=== PATIENT | female | born 1985 | race Caucasian/White ===

== ENCOUNTER → 2023-05-26 09:22 | Outpatient (REF) | payer OTHER, SELFPAY | LOC: HWRAD 09:22 | PROVIDERS: ATTENDING PHYSICIAN Obstetrics & Gynecology; FAMILY PHYSICIAN Internal Medicine | DX: N83.201 Unspecified ovarian cyst, right side (principal) | CPT/HCPCS: 76830; 76856 ==

== ENCOUNTER 2023-12-24 16:09 | Emergency (ER) | payer OTHER, SELFPAY ==
[2023-12-24 16:12] VITALS: BP 119/91
--- NOTE | 2023-12-24 16:21 | ED.GENMED ---
ED Provider Triage
<NATALYA Reece - Last Filed: 12/24/23 16:23>
-
Patient seen by provider in Triage?: Seen in Triage
Attestation: A medical screening examination has been initiated by a qualified medical provider. Based on the assessment performed at this time, it has been determined that an emergent medical condition may exist and the patient has been informed
that further medical evaluation and possible additional diagnostic testing may be needed.
HPI: 38 yr old female presents to the ER complaining of left-sided chest pain/bilateral jaw pain and pain between shoulder blades. s/s started 12 pm + shortness of breath with this. SHe denies any injury. No hx of DVT/PE. no oral contraception.
Pt admits she is under a lot of stress
GENERAL: Alert , in no apparent distress
EYE: No visual abnormalities.
NECK: Trachea midline
ENT: No visible abnormalities.
LUNGS: No acute respiratory distress, lungs cta , chest non tender
NEUROLOGICAL: Alert and oriented
SKIN: Skin intact. No visible changes.
MUSCULOSKELETAL: Moving extremities normally
PSYCH: Normal and appropriate interaction.
This is a medical evaluation conducted in person to initiate diagnostic evaluation and provide initial therapeutics. Please see further documentation by the treating clinician.
History of Present Illness
<NATALYA Reece - Last Filed: 12/24/23 16:23>
General
Chief Complaint: Chest Pain
Time Seen by Provider: 12/24/23 16:48
<Moira Resendez PA-C - Last Filed: 12/24/23 22:19>
General
Source: patient
History of Present Illness
History of Present Illness:
38yoF with a history of anxiety presenting for evaluation of chest pain. Patient started to feel some dyspnea and lightheadedness yesterday. She was sitting at her desk today around 1 PM when she started to a central chest discomfort. Pain
radiated to the jaw and in between her shoulder blades. She was seen at urgent care and was told to go to the ED for evaluation. Patient's pain has currently resolved although she continues to feel short of breath. Patient states she has been
under a lot of stress recently and 2 of her friends have this week.
Past History
<NATALYA Reece - Last Filed: 12/24/23 16:23>
Past History
ED Past Medical History: Negative CAD, Cancer or CHF
ED Past Surgical History: Negative Cardiac, Cholecystectomy, or Gynecological
Social History
Tobacco: Non-smoker
Alcohol: None
Drug: None
Personal:
Living: with family
Employment: Employed
Family History
Family History: Hypertension
Phy Exam
<Moira Resendez PA-C - Last Filed: 12/24/23 22:19>
General Physical Exam
General Presentation: well appearing and no apparent distress
General age: appears stated age
General Skin: warm and dry
General Habitus: normal
General Mental: alert
ENT Exam
ENT Exam: normocephalic
Cardiovascular Exam
Cardiovascular Exam: regular rate/rhythm, no murmur and normal peripheral pulses (2+ radial and DP pulses bilaterally )
Pulmonary Exam
Pulmonary Exam: lungs clear, no respiratory distress, no rales, no crackles, no rhonchi and no wheezing
[place]inda Coma Scale
Eye Opening: Spontaneous
Verbal Response: Oriented
Motor Response: Obeys Commands
GCS Total Score: 15
Skin Exam
Skin Exam: normal color and warm/dry
Psychiatric Exam
Psychiatric Exam: normal mood/affect
Scores
<Moira Resendez PA-C - Last Filed: 12/24/23 22:19>
Heart Score for Chest Pain Patients
STEMI patient?: No
History: Slightly or Non-Suspicious
ECG: Normal
Age: </= 45 years
Risk Factors: No Risk Factors
Troponin: </= Normal Limit
Heart Score for Chest Pain Patients: 0
Heart Score Risk: 2.5% MACE over next 6 weeks
Course
<NATALYA Reece - Last Filed: 12/24/23 16:23>
Orders/Labs/Results
Orders:
Orders
12/24/23 16:10
Electrocardiogram (*1) Urgent
Reason for Study: Chest Pain
EKG- Treatment ONCE
12/24/23 16:20
Test Result ONCE
12/24/23 16:24
Complete Blood Count/With Diff Urgent
D-Dimer Urgent
HCG, Serum Qualitative Screen Urgent
Troponin I Urgent
12/24/23 17:39
CR Chest - 2 Views Urgent
Comment:
Reason For Exam: CP
12/24/23 17:47
Acetaminophen [Tylenol] 1,000 mg PO NOW STA
Abnormal Lab Results
12/24/23
16:24
RBC 4.19 L 10^6/uL
(4.20-5.40)
Hct 36.7 L %
(37.0-47.0)
MCH 32.2 H pg
(27.0-31.0)
12/24/23 16:24
Vital Signs
Initial and Last Documented VS:
Initial Vital Signs
Temp Pulse Resp BP Pulse Ox
98.2 F 76 16 119/91 100
12/24/23 16:12 12/24/23 16:12 12/24/23 16:12 12/24/23 16:12 12/24/23 16:12
Last Documented Vital Signs
Temp Pulse Resp BP Pulse Ox
98.2 F 75 15 107/71 100
12/24/23 16:12 12/24/23 19:30 10/17/24 19:30 12/24/23 19:00 12/24/23 19:45
<Moira Resendez PA-C - Last Filed: 12/24/23 22:19>
Orders/Labs/Results
Orders:
Orders
12/24/23 16:10
Electrocardiogram (*1) Urgent
Reason for Study: Chest Pain
EKG- Treatment ONCE
12/24/23 16:20
Test Result ONCE
12/24/23 16:24
Complete Blood Count/With Diff Urgent
D-Dimer Urgent
HCG, Serum Qualitative Screen Urgent
Troponin I Urgent
12/24/23 17:39
CR Chest - 2 Views Urgent
Comment:
Reason For Exam: CP
12/24/23 17:47
Acetaminophen [Tylenol] 1,000 mg PO NOW STA
Abnormal Lab Results
12/24/23
16:24
RBC 4.19 L 10^6/uL
(4.20-5.40)
Hct 36.7 L %
(37.0-47.0)
MCH 32.2 H pg
(27.0-31.0)
12/24/23 16:24
Vital Signs
Initial and Last Documented VS:
Initial Vital Signs
Temp Pulse Resp BP Pulse Ox
98.2 F 76 16 119/91 100
12/24/23 16:12 12/24/23 16:12 12/24/23 16:12 12/24/23 16:12 12/24/23 16:12
Last Documented Vital Signs
Temp Pulse Resp BP Pulse Ox
98.2 F 75 15 107/71 100
12/24/23 16:12 12/24/23 19:30 12/24/23 19:30 12/24/23 19:00 12/24/23 19:45
<Moira Resendez PA-C - Last Filed: 12/24/23 22:19>
MDM/Problems Addressed
Differential Diagnosis Includes:
38yoF here with chest pain that began this afternoon while sitting at her desk. Pain has since resolved. Also c/o SOB and lightheadedness. Sent here by urgent care. Admits to being under a lot of stress recently. VSS. She is well appearing in no
distress. Exam is reassuring. Differential diagnosis includes but is not limited to: GERD, pneumonia, pneumothorax, pleurisy, anxiety, musculoskeletal, doubt ACS, doubt PE
Initial ED plan: Cardiac labs, D-dimer, and EKG obtained in triage. EKG shows NSR without ischemic changes. Troponin WNL. D-dimer normal making PE very unlikely. Will add CXR.
<Moira Resendez PA-C - Last Filed: 12/24/23 22:19>
*EKG
Interpreted by ED Provider?: Yes
EKG Intrepretation Date: 12/24/23
Heart Rate: 68
Rate: normal
Rhythm: sinus
[place]: normal axis
Interval: normal interval
QRS Pattern: normal QRS
Ischemia: no ischemia
*Critical Care Note
Total Time (30-74mins, 75-104mins- exclusive of procedures): Not Applicable
<Moira Resendez PA-C - Last Filed: 12/24/23 22:19>
Update Note
Update Note:
CXR is clear without acute findings. On reassessment, she continues to deny any active chest pain. HEART score is 0. She is stable for discharge. Advised f/u with PCP and ED return precautions discussed. She expressed understanding and is agreeable
to plan. She was discharged in stable condition.
ED Attending Note
<NATALYA Reece - Last Filed: 12/24/23 16:23>
-
Portions of this chart may have been created with voice recognition software.� Occasional wrong word or��sound alike� substitutions may have occurred due to the inherent limitations of voice recognition software.
Discharge Plan
Departure
Patient Disposition: Home (Routine Discharge)
Date of Disposition: 12/24/23
Time of Disposition: 19:42
Patient with high blood pressure during this ER visit?: No
Discharge Problem:
Chest pain
Instructions: Chest Pain PCP Follow Up
Prescriptions:
No Action
Vitamin Tablet
1 tab PO DAILY
Zoloft
50 mg PO DAILY
ibuprofen 600 MG tablet
600 mg PO Q4HPRN PRN (Reason: moderate pain/cramps) Qty: 60 0RF
Referrals:
Lanie Finley MD [Family Provider] -
Activity Restrictions/Additional Instructions:
Please follow-up with your family doctor. Return to the ER with any new or worsening symptoms.
Interventions
Interventions:
*Risk Screen - Suicide Last Done: 12/24/23 17:04
*General Assessment Last Done: 12/24/23 17:04
*Neglect/Abuse Screening Last Done: 12/24/23 17:04
ED- Fall Risk Assessment Last Done: 12/24/23 17:04
*ED COVID-19 Vaccine History Last Done: 12/24/23 17:04
*Nursing Disposition Last Done: 12/24/23 19:48
ED- Cardiac Assessment Last Done: 12/24/23 17:04
Discharge Date and Time
Discharge Date/Time: 12/24/23 19:49
Print Language: YI
[2023-12-24 16:30] LABS: % Basophils 1.1 % (0-2); % Immature Granulocytes 0.3 % (0-0.5); % Lymphocytes 35.4 % (20.5-51.1); % Monocytes 6.5 % (1.7-9.3); % Neutrophils 54.7 % (42.2-75.2); Absolute Basophils 0.1 10^3/uL (0-0.2); Absolute Eosinophils 0.1 10^3/uL (0-0.7); Absolute Lymphocytes 2.2 10^3/uL (1.2-3.4); Absolute Monocytes 0.4 10^3/uL (0.1-0.6); Absolute Neutrophils 3.4 10^3/uL (1.4-6.5); Hematocrit 36.7 % (37.0-47.0); Hemoglobin 13.5 g/dL (12.0-16.0); Mean Corp Hgb Conc. 36.8 g/dL (33.0-37.0); Mean Corpuscular Hgb 32.2 pg (27.0-31.0); Mean Corpuscular Volume 87.6 fL (81.0-99.0); Mean Platelet Volume 8.9 fL (7.4-10.4); Nucleated Red Blood Cells % 0 %; Platelet Count 280 10^3/uL (130-400); Red Blood Cell Count 4.19 10^6/uL (4.20-5.40); Red Cell Dist. Width 12.1 % (11.5-14.5); White Blood Cell Count 6.1 10^3/uL (4.8-10.8)
[2023-12-24 16:43] LABS: D-Dimer 0.34 ug/mlFEU (0.00-0.50)
[2023-12-24 16:51] LABS: HCG, Serum Qualitative Screen Negative
[2023-12-24 16:53] LABS: Troponin I < 0.012 ng/ml
[2023-12-24 17:04] VITALS: BMI 24.4
[2023-12-24 17:08] VITALS: BP 102/74
[2023-12-24] MEDS: TYLENOL 1000 MG PO (17:50)
[2023-12-24 18:00] VITALS: BP 93/58
[2023-12-24 19:00] VITALS: BP 107/71
== END 2023-12-24 19:49 | disposition home or self-care (01) ==
LOC: EMR 16:09
PROVIDERS: Nurse Practitioner; EMERGENCY PHYSICIAN Emergency Medicine; FAMILY PHYSICIAN Family Medicine
DX: R07.89 Other chest pain (principal); R68.84 Jaw pain; F41.9 Anxiety disorder, unspecified; Z82.49 Family history of ischemic heart disease and other diseases of the circulatory system; Z90.49 Acquired absence of other specified parts of digestive tract
CPT/HCPCS: 99283; 71046; 84484; 84703; 85025; 85379; 93005